=== PATIENT | female | born 1960 | race Caucasian/White ===

== ENCOUNTER 2024-10-23 08:14 | Observation (INO) ==
--- NOTE | 2024-09-20 12:54 | PAT Medication Instructions ---
Medication Instructions Date of Service September 20, 2024 Home Medications Medication Instructions Recorded acetaminophen 500 mg tablet 1,000 mg (2 x 500 mg) PO TID pain 07/13/23 (Tylenol Extra Strength) 30 days #180 tabs amoxicillin 500 mg tablet 2,000 mg (4 x 500 mg) PO ONCE #4 08/09/24 tabs cyanocobalamin (vitamin B-12) 1,000 mcg tablet 1,000 mcg PO QAM lbjkljjlupgn-tovjlidu-hprofhi-folic acid 400 mcg-vit K1 20 mcg tablet (Women's 50 Plus Advanced) 1 tab PO QAM acetaminophen 500 mg tablet (Tylenol Extra Strength) 1,000 mg (2 x 500 mg) PO TID pain amoxicillin 500 mg tablet 2,000 mg (4 x 500 mg) PO ONCE naproxen 500 mg tablet 500 mg PO BID PRN Pain vit C 250 mg-vit E 90 mg-zinc 40 mg-copper 1 ws-rtqnxn-xtisbr capsule (PreserVision AREDS-2) 1 tab PO QAM Continue as directed amoxicillin 500 mg tablet 2,000 mg (4 x 500 mg) PO ONCE ASK your surgeon for instructions naproxen 500 mg tablet 500 mg PO BID PRN Pain STOP taking 2 weeks before surgery (or as soon as possible if surgery is within 2 weeks) vit C 250 mg-vit E 90 mg-zinc 40 mg-copper 1 or-wyjtqg-wotfim capsule (PreserVision AREDS-2) 1 tab PO QAM DO NOT take the morning of surgery cyanocobalamin (vitamin B-12) 1,000 mcg tablet 1,000 mcg PO QAM Women's 50 Plus Advanced 1 tab PO QAM Take morning of surgery With a small sip of water, OTHERWISE NOTHING TO EAT OR DRINK AFTER MIDNIGHT: acetaminophen 500 mg tablet (Tylenol Extra Strength) 1,000 mg (2 x 500 mg) PO TID pain (if needed) Take evening before surgery acetaminophen 500 mg tablet (Tylenol Extra Strength) 1,000 mg (2 x 500 mg) PO TID pain (if needed) Other Notes If you have any questions please call us at [phone] or [phone] or [phone] or [phone]
--- NOTE | 2024-10-01 09:45 | Anesthesiology Consultation ---
Date of Service October 01, 2024 Assessment & Plan (1) Encounter for pre-operative examination: Plan - s/p right TKA 07/15/23 SAB L3-L4 + PNB. - Outpatient joint assessment: Patient is currently scheduled for inpatient pathway. If re-evaluated and patient/surgeon requests outpatient pathway, patient is acceptable candidate for outpatient joint program from anesthesia standpoint pending surgeon's office assessment of pt motivation/support/completion of same day joint program preop requirements. Chart Review Chart Review: Acceptable Risk for Surgery and Patient seen in Pre Admission Testing Teaching & Discussion Pre-Anesthesia Teaching/Discussion Notes: Instructed NPO after midnight before surgery, except medications with 15 cc of water. Medication instructions provided according to the PAT guidelines. History Surgery Operation Date: 10/23/24 07:00 Proposed Procedures p Left Total Knee Arthroplasty - Enrique Wells MD Height/Weight Height: 5 ft 4 in Weight: 70.4 kg Allergies Allergy/AdvReac Type Severity Reaction Status Date / Time No Known Allergies Allergy Verified 11/07/23 10:42 Medications Home Medications Medication Instructions Recorded Confirmed Last Taken cyanocobalamin (vitamin B-12) 1,000 mcg PO QAM 06/09/23 09/18/24 07/08/23 1,000 mcg tablet pdwsygctboda-xscaroag-qyxgbss-folic 1 tab PO QAM 06/09/23 09/18/24 07/08/23 acid 400 mcg-vit K1 20 mcg tablet (Women's 50 Plus Advanced) acetaminophen 500 mg tablet 1,000 mg (2 x 500 mg) PO TID pain 07/13/23 09/18/24 Unknown (Tylenol Extra Strength) 30 days #180 tabs amoxicillin 500 mg tablet 2,000 mg (4 x 500 mg) PO ONCE #4 08/09/24 09/18/24 Unknown tabs naproxen 500 mg tablet 500 mg PO BID PRN Pain 09/18/24 09/18/24 Unknown vit C 250 mg-vit E 90 mg-zinc 40 1 tab PO QAM 09/18/24 09/18/24 Unknown mg-copper 1 cb-lxgxup-bevpan capsule (PreserVision AREDS-2) Past Medical History Medical History (Updated 10/01/24 @ 09:47 by Zhane Mak PA-C) Arthritis DJD (degenerative joint disease) of knee History of COVID-19 Possible 08/2019, "was very ill" denies residual effects Lyme disease Possible 2011, "not confirmed" denies residual effects Patient denies h/o stroke, seizures, heart attack, heart failure, DM, HTN, blood clots/DVTs or blood transfusions. Exercise / Class Metabolic Activity II 4-5 Yardwork/Stairs/Walk up hill (denies chest discomfort or shortness of breath with one flight of stairs) Past Surgical History Surgical History History of arthroplasty of right knee 06/2023 [facility] History of carpal tunnel release right History of section x1 History of colonoscopy Past Anesthesia History No Hx of Anesthesia Complications and No Family Hx of Anesthesia Complications History of PONV No Hx of PONV and No Hx of Motion Sickness Social History Smoking Status: Never smoker Do You Dip or Chew Tobacco: No Hx Alcohol Use: Yes Alcohol type: beer alcohol intake frequency: holidays/special occasions only Hx Substance Use: No substance use type: does not use Review of Systems Patient denies chest pain, shortness of breath, dyspnea on exertion, snoring, witnessed apneas, reflux, fever, chills, cough, wheezing, or palpitations. Physical Exam Vital Signs Vitals BP 118/71 P 61 TEMP 97.8 SP02 97% on RA RESP 19 Physical Patient resting comfortably in chair in no acute distress, alert and oriented, responding appropriately throughout visit Full cervical extension range of motion without pain TMD 3 finger breadths Mallampati Score 2 Dentition: several cap/crowns left side, denies chipped or loose teeth, implants or bridges Lungs: normal respiratory effort. Good air movement, clear throughout to auscultation, no adventitious breath sounds Cardiac: regular rate and rhythm, no murmurs noted Carotid arteries: negative bruit bilat Lab Results Anesthesia Preop Results Results Anesthesia Widget: WBC 6.10 K/ul (4.8-10.8) 10/01/24 Hgb 13.7 g/dl (12.0-16.0) 10/01/24 Hct 42.4 % (37.0-47.0) 10/01/24 Plt 271 K/uL (130-400) 10/01/24 Na 139 mmol/L (136-145) 10/01/24 K 4.9 mmol/L (3.5-5.1) 10/01/24 Cl 104 mmol/L (98-107) 10/01/24 CO2 31 mmol/L (21-32) 10/01/24 BUN 19 mg/dl (6-23) 10/01/24 Creat 0.80 mg/dl (0.6-1.2) 10/01/24 Glucose Level 95 mg/dl (70-99(Fasting)) 10/01/24 PT 11.0 Seconds (9.0-12.0) 10/01/24 PTT 28 Seconds (21-31) 10/01/24 INR 1.0 (0.9-1.1) 10/01/24 Blood Type O Positive 10/01/24 Antibody Screen NEGATIVE 10/01/24 Testing Electrocardiogram Date: 10/01/24 Sinus bradycardia, rate 54 bpm Chest X-Ray Date: 10/01/24 No acute findings. Stress Test Date: 10/31/19 METS 5 MPHR 97% Negative for inducible ischemia Low workload achieved reduces the sensitivity of this test for the detection of coronary artery dsiease or ischemia Suboptimal study EF 55-59% Normal LV wall motion
--- NOTE | 2024-10-18 13:41 | History & Physical Report ---
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 She has failed conservative treatment. She is happy with the right knee would like to have her left knee fixed. Plan: We are going to take her to the operating room do a left knee replacement. The risks Mente this procedure were explained and she understands. Informed consent was obtained. Will plan on using aspirin for DVT prophylaxis. She is planned to be discharged to home with some home health. (2) History of arthroplasty of right knee: History of Present Illness Chief Complaint: . Persistent left knee pain and discomfort. Primary Care Provider: Christal Mc . 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 She got a long history of bilateral knee pain discomfort described to gotten worse over time. She had a right knee replaced a little over a year ago and is done well with this. She continues to limp by left knee pain discomfort. Is global pain. The more she is on it the more it hurts. She limps more as the day goes on. She like to have her left knee fixed. She is very happy with the right knee. Allergies Allergy/AdvReac Type Severity Reaction Status Date / Time No Known Allergies Allergy Verified 11/07/23 10:42 Home Medications Medication Instructions Recorded Confirmed Type cyanocobalamin (vitamin B-12) 1,000 mcg PO QAM 06/09/23 09/18/24 History 1,000 mcg tablet cxidoaplqhcm-okfwuceu-unofvep-folic 1 tab PO QAM 06/09/23 09/18/24 History acid 400 mcg-vit K1 20 mcg tablet (Women's 50 Plus Advanced) acetaminophen 500 mg tablet 1,000 mg (2 x 500 mg) PO TID pain 07/13/23 09/18/24 Rx (Tylenol Extra Strength) 30 days #180 tabs amoxicillin 500 mg tablet 2,000 mg (4 x 500 mg) PO ONCE #4 08/09/24 09/18/24 Rx tabs naproxen 500 mg tablet 500 mg PO BID PRN Pain 09/18/24 09/18/24 History vit C 250 mg-vit E 90 mg-zinc 40 1 tab PO QAM 09/18/24 09/18/24 History mg-copper 1 pb-xectyb-nmnoht capsule (PreserVision AREDS-2) Past Med/Surg History Problem List Left knee DJD Medical History DJD (degenerative joint disease) of knee Arthritis Lyme disease Possible 2011, "not confirmed" denies residual effects History of COVID-19 Possible 08/2019, "was very ill" denies residual effects Surgical History History of arthroplasty of right knee 06/2023 [facility] History of colonoscopy History of carpal tunnel release right History of section x1 Social History Smoking Status: Never smoker Second Hand Exposure: No; Do You Dip or Chew Tobacco: No; Hx Alcohol Use: Yes Alcohol type: beer Hx Substance Use: No Preferred Language: Indian Communication Ability: Effective Fiberglass Quality Technician Required: No Beliefs That Will Affect Care: None Current Living Situation: Spouse Feels Safe at Home: Yes Assistive Devices: Glasses Review of Systems All systems reviewed & are unremarkable except as noted in HPI & below. Physical Exam . Physical examination was a pleasant middle-age female but looks in pretty good health. Examination of the left knee reveals varus alignment to her knee. She is tender over the medial joint line. A little bit of bony hypertrophy medially. Range of motion about 5-1 15. No instability. No pain with hip motion. Examination the right knee was a well-healed incision. She has anatomic alig nment to the knee. Range of motion 0-1 20. No instability. Constitutional WD/WN, vitals as above Neck trachea midline, no thyromegaly Respiratory normal respiratory effort, lungs clear to auscultation Cardiovascular RRR, no murmur, no edema Gastrointestinal (Abdomen) normal bowel sounds, soft, nontender, no hepatosplenomegaly Results & Data Results & Data Laboratory Results . Diagnostic Findings . X-rays of the left knee reviewed. Shows advanced left knee DJD. She got complete loss of medial joint space. She got osteophytes primarily medially. The right knee replacement looks made good position without problems. PG Care Time/CCT Total # of Minutes Spent Total Time Spent with Patient: Total time spent is greater than 50% in coordination of care (as documented) at patient's floor/unit and/or counseling patient: Coding Level of Care Code None Diagnoses Left knee DJD M17.12 History of arthroplasty of right knee Z96.651
[~2024-10-23 08:14] MED LIST: BUPIVACAINE 0.5 % 5 MG/1 ML PF 10ML VIAL ONE; ROPIVACAINE 0.5% 5 MG/ML 30 ML VIAL ONE
--- NOTE | 2024-10-23 08:47 | History & Physical Bridge Note ---
Date of Service October 23, 2024 History & Physical Bridge Note I have examined the patient, reviewed the History & Physical and in the interval since the performance of the History & Physical I have noted the following changes of clinical significance: no changes noted
[2024-10-23] MEDS: LR 60ML/HR IV SCH (08:54)
[2024-10-23] MEDS: LR 500ML BOLUS, THEN 15ML/HR IV SCH (08:54)
[2024-10-23] MEDS: METOCLOPRAMIDE HCL 10 MG TABLET PO SCH (08:56)
[2024-10-23] MEDS: CeleBREX 200 MG CAP PO SCH (08:56)
[2024-10-23] MEDS: FAMOTIDINE 20 MG TAB PO SCH (08:56)
[2024-10-23] MEDS: dexAMETHasone**PF** 10 MG/ML VIAL IV SCH (08:56)
[2024-10-23] MEDS: ACETAMINOPHEN 500 MG TAB PO SCH ×2 (08:56→15:43)
[2024-10-23] MEDS ORDERED: ONDANSETRON INJ 2 MG/ML 2 ML VIAL ONE (09:23)
[2024-10-23] MEDS ORDERED: PROPOFOL IV EMULSION 10 MG/ML 100 ML VIAL IV ONE (09:23)
[2024-10-23] MEDS ORDERED: fentaNYL citrate PF 100 MCG/2 ML VIAL ONE (09:23)
[2024-10-23] MEDS ORDERED: MIDAZOLAM HCL 1 MG/ML 2ML VIAL ONE (09:23)
--- OUTSIDE RECORDS SUMMARY | 2024-10-23 09:44 | External Medical Summary | Summary of Care ---
Author Name Unknown Organization [facility] Address [address] [place] [address] Phone [phone] Care Team Providers Care Regional Director Of Finance Name Role Phone Christal Mc PA-C Primary Care Provider Encounter Details Date Type Department Care Team (Latest Contact Info) Description 10/05/2024 9:07 AM EST - 10/05/2024 11:59 PM EST Hospital Encounter Radiology, [facility] [address] [place] [address] Arrived Discharge Disposition: Home - Self Care Allergies No known active allergiesdocumented as of this encounter (statuses as of 10/06/2024) Medications CYANOCOBALAMIN (VITAMIN B-12) 500 MCG Sublingual Tablet Take 1 Tablet by mouth in the morning. Active Multiple Vitamin (MULTI VITAMIN DAILY) TABS 1 Tab daily. Active Celecoxib 200 MG Oral Capsule (CeleBREX) Take 1 Capsule by mouth in the morning. 2 Active Premarin 0.625 MG/GM Vaginal Cream (Estrogens, Conjugated)Arline cations:Vaginal atrophy Administer into the vagina 0.5 g in the morning. with applicator, every night for 1 week, then three times a week on Mondays, Wednesdays and Fridays for two weeks. Then Once to twice a week after.. 60 g 2 2 Active Additional Information Patient not taking.Reported on 10/12/2022 documented as of this encounter (statuses as of 10/06/2024) Active Problems Problem Noted Date Diagnosed Date Left ovarian cyst 07/27/2022 Right ovarian cyst 07/27/2022 Uterine leiomyoma 07/27/2022 Female dyspareunia 07/27/2022 Bilateral hand pain 10/04/2014 documented as of this encounter (statuses as of 10/06/2024) Social History Tobacco Use Types Packs/Day Years Used Date Smoking Tobacco: Never Smokeless Tobacco: Never Alcohol Use Standard Drinks/Week Comments No 0 (1 standard drink = 0.6 oz pur e alcohol) Comments No Sex and Gender Information Value Date Recorded Sex Assigned at Not on file Legal Sex Female 7:04 AM EST Gender Identity Not on file Sexual Orientation Not on file documented as of this encounter Plan of Treatment Scheduled Procedures Name Priority Associated Diagnoses Date/Ti me COLONOSCOPY FLEXIBLE PROXIMA L DIAGNOSTIC Recall History of colonic polyps Health Maintenance Due Date Last Done Comments Depression Screening 1973 HIV Screening 1976 Hepatitis C Screening 1979 HPV/Co-Test 1991 DTap/Tdap Vaccines (1 - Tdap) 12/30/2005 12/29/2005 Cologuard 2006 Fecal Occult Blood Test 2006 Sigmoidoscopy 2006 Pneumococcal Vaccine: 50+ Years (1 of 1 - PCV) 2011 Zoster Vaccines (1 of 2) 2011 COVID-19 Vaccine (3 - season) 2024 03/26/2021, 02/17/2021 Influenza Vaccine (FLU shot) (#1) 2024 Cervical Cancer Screening 07/27/2025 Pap Smear 07/27/2025 07/27/2022 Mammogram 10/05/2025 10/05/2024, 08/27, 09/06/2023, Additional history exists Colonoscopy 06/11/2026 06/11/2021, 06/11/2021 Colorectal Cancer Screening 06/11/2026 Diabetes Screening 06/26/2027 06/26/2024, 0 12/21/2023, 06/15/2023, Additional history exists Lipid Panel 06/26/2029 06/26/2024, 11/25, 06/15/2023, Additional history exists RETIRED - COLONOSCOPY-EVERY 5 YRS AGES 18-100 Discontinued 06/11/2021, 06/11/2021 HPV (Gardasil) Vaccine Aged Out No lo nger eligible based on patient's age to complete this topic Hepatitis B Vaccine Aged Out No longe r eligible based on patient's age to complete this topic MENINGOCOCCAL (MENACTRA/MENVEO) Aged Out No longer eligible based on patient's age to complete this topic documented as of this encounter Medical Devices Implanted Type Area Composing Machine Operator Device Identifier Shelf Expiration Date Model / Serial / Lot Clip-10/12/2023 Implanted:Qty: 1 on 10/12/2023 by Ajit Rodrigez DO Clip Left: Breast [employer] 06/22/2026 / / [id number] documented as of this encounter Procedures Procedure Name Priority Date/Time Associated Diagnosis Comments MAMMOGRAM SCREENING RESHMA BILATERAL Routine 10/05/2024 9:19 AM EST Encounter for screening mammogram for malignant neoplasm of breast documented in this encounter Results * MAMMOGRAM SCREENING RESHMA BILATERAL (10/05/2024 9:19 AM EST) Anatomical Region Laterality Modality Breast Bilateral Mammography Narrative 10/05/2024 1:20 PM EST Result MAMMOGRAM SCREENING RESHMA BILATERAL History Encounter for screening mammogram for malignant neoplasm of breast Family medical history includes breast cancer in grandmother (maternal). Films Compared Comparison is made to previous studies dated as far back as 2019 Findings The breasts are heterogeneously dense, which may obscure small masses. There is no evidence of suspicious masses, calcifications, or other abnormal findings. Impression Bilateral No mammographic evidence of malignancy. BI-RADS Category: 1 - Negative. Recommendation Screening mammogram in 1 year is recommended for both breasts. Digital breast tomosynthesis was performed. This digital mammogram has been analyzed with the computer aided detection system. Breast tissue can be either dense or not dense. Dense tissue makes it harder to find breast cancer on a mammogram and also raises the risk of developing breast cancer. Your breast tissue is dense. In some people with dense tissue, other imaging tests in addition to a mammogram may help find cancers. Talk to your healthcare provider about breast density, risks for breast cancer, and your individual situation. This examination was performed at [facility], [address] [place] [id number]. [phone] Christal Mc PA-C RAD MAMMOGRAPHY Final R esult documented in this encounter Visit Diagnoses Diagnosis Encounter for screening mammogram for malignant neoplasm of breast Other screening mammogram documented in this encounter Care Teams Regional Director Of Finance Relationship Specialty Start Date End Date [facility]al Mc PA-C [address] [facility] [address] PCP - General Physician Business Executive 10/15/15 documented as of this encounter
[2024-10-23] MEDS ORDERED: ePHEDrine sulfate 50 MG/ML AMP IV PRN (10:18)
[2024-10-23] MEDS ORDERED: ONDANSETRON INJ 2 MG/ML 2 ML VIAL IV PRN ×2 (10:18→14:14)
[2024-10-23] MEDS ORDERED: ATROPINE SULFATE 0.1 MG/ML 10ML SYR IV PRN (10:18)
[2024-10-23] MEDS ORDERED: fentaNYL citrate PF 100 MCG/2 ML VIAL IV PRN (10:18)
[2024-10-23] MEDS: ceFAZolin 2000MG 2,000 MG/15 ML SYR IV SCH (10:54)
[2024-10-23] MEDS ORDERED: ePHEDrine sulfate 50 MG/5 ML SYR ONE (11:19)
[2024-10-23] MEDS: ORTHO JOINT ANESTHETIC ONE (11:25)
[2024-10-23] MEDS: ROPIV 0.5% 246mg, Ketorolac 30mg, EPINEPHrine 0.5mg in NSS INFIL SCH (11:25)
[2024-10-23] MEDS: TRANEXAMIC ACID 1,000 MG **IV Intra-op IV SCH (11:54)
--- NOTE | 2024-10-23 12:37 | Operative Report ---
PG Post Operative Report Pre & Post Diagnosis Operation Date: 10/23/24 10:40 Pre-Op Diagnosis: Left Knee Degenerative Joint Disease Post-Op Diagnosis: Left Knee Degenerative Joint Disease I identified the patient and participated in the time-out.: Yes Procedure Operation Date: 10/23/24 10:40 Actual Procedures p Left Total Knee Arthroplasty(Left) - Enrique Wells MD Surgeon Enrique Wells MD Health Services Administrator Jhon Randolph PA-C Estimated Blood Loss 50 Findings Consistent with Post-Op Diagnosis Specimens Left knee sent for pathology. 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 She failed conservative measures. She had a right knee replaced a year ago and is done well from this. She continued be limited by left knee pain discomfort stiffness. She like to proceed with total knee arthroplasty on the left knee. Description of Procedure Operative implants consist of: 1 Biomet Vanguard size 62.5 left posterior Byce femoral component. 2. Biomet size 67 tibial tray. 3. 12 mm posterior stabilized polyethylene insert. 4. 31 x 8 all poly patella. The patient was taken the op room, identified, placed on the operating table in the supine position. All contact areas were appropriately padded. IV antibiotics fibra anesthesia team. A spinal anesthetic and adductor canal block had been provided in the holding area. A Zuniga catheter was placed in sterile fashion. A left factor was then placed in the left lower extremities then prepped and draped in usual sterile fashion. The left leg was elevated and exsanguinated with use of an Esmarch and a turn was placed at 300 mmHg. An anterior approach to the left knee was then performed to a longitudinal incision centered over the patella. Sharp dissection scalp through subcutaneous tissue down the extensor mechanism. A med ial parapatellar arthrotomy incision was made. Some subperiosteal dissection was carried out medially. The fat pad was dissected from Neath patella tendon. The lateral patellofemoral ligament was released. The patella was subluxated laterally and the knee was flexed. The osteophytes taken on distal femur. The ACL and PCL were then released from distal femur the tibia subluxate anteriorly. The external tibial alignment jig was then placed on the anterior face the tibia and adjusted 14 mm medially. The proximal tibial cut was made remove about 2 mm of bone from the medial side. Tibia sized to a size 67. Attention drawn the femur. The distal femur was entered with a sharp drop with intramedullary canal was suction. A left 5 degree valgus cutting guide was placed. The distal femoral cutting block was pinned in place. This femoral cut was made to take an additional 3 mm of bone off distal femur. The femur was then sized to a size 62.5. The AP cutting block was pinned parallel to the epicondylar axis which was 4 degrees of external rotation. The anterior cut, anterior chamfer, posterior cut, posterior chamfer cuts were made. The box cutting guide was placed and just slight lateral and the box cut was made. The knee was flexed. The remnants of the medial and lateral menisci were excised. The osteophytes taken off the posterior aspect the femur. A trial femoral component was placed. The tibial tray was pinned Sheila external rotation and the drill and stem punch were used to create defect in proximal tibia for the tibial tray. The knee was then trialed and the 12 mm insert fit most appropriately. Attention drawn the patella. Patella was cleaned of all soft tissue. Patella thickness measured 18 mm in thickness was cut down to 13. Was sized to a size 31 patella. The lug holes were drilled for 31 patella. The lateral osteophytes removed. The patella button was placed. The knee was taken through range of motion patella tracked nicely with no thumbs test. Attention was then drawn toward placement permanent components. Nupathe all trial components were removed. Bone plug was placed into this femur limit blood loss. A double batch Palacos G cement was mixed. A Biomet Vanguard size 62.5 left posterior stabilized femoral component, a size 67 tibial tray, a 12 mm posterior stabilized polyethylene insert, and a 31 x 8 all poly patella then cemented in place. The knee was brought down to full extension till cement hardened. Final cement check was then performed. The pericapsular tissues were injected with total 100 cc of Ortho mix. The patient did receive 1 g tranexamic acid. The tourniquet was then let down for final turn time 54 minutes. Hemostasis assured with electrocautery. Extensor Meclomen then closed with combination 1 PDS suture and 1 Vicryl suture in a pjjbjg-kh-glaih fashion. Extensor Meclomen checked found to be intact with subcutaneous tissues then closed with 2 Dexon suture in a buried interrupted fashion and the skin was closed skin cleo. Leg was then cleaned and dried and a sterile dressing with Xeroform, 4 fours, sterile cast padding, Sidney bandage were applied. The patient was then transferred to the recovery in stable condition. Patient tolerated procedure well and there were no complications. Jhon Randolph, my physician boilermaker's assistant, was present for the entire procedure. His assistance was essential and required for appropriate patient positioning, prepping and draping, surgical exposure, performing the technical details of the operation, placement the implants, closure of the wound, and placement of the sterile bandage. I attest to the content of the Intraoperative Record and any orders documented therein. Any exceptions are noted below.
--- NOTE | 2024-10-23 12:57 | XRay Report ---
XR knee LT 1 or 2V routine CLINICAL HISTORY: Surgical Post Op COMPARISON: None FINDINGS: Left knee prosthesis shows no hardware complication. There is expected soft tissue gas. Sk in cleo are present anteriorly. IMPRESSION: Unremarkable postoperative exam. ACT 112: Negative or not required by law. Electronically signed by: Zafar Cross M.D. 10/23/2024 12:55 PM
[2024-10-23] MEDS ORDERED: HYDROmorphone INJ 0.5 MG/0.5 ML SYR IV PRN (14:14)
[2024-10-23] MEDS ORDERED: diphenhydrAMINE Capsule 25 MG CAP PO PRN (14:14)
[2024-10-23] MEDS ORDERED: ACETAMINOPHEN 500 MG TAB PO SCH (14:14)
[2024-10-23] MEDS ORDERED: NALOXONE HCL 0.4 MG/1 ML VIAL/CARP IV PRN (14:14)
[2024-10-23] MEDS ORDERED: ALUMINUM/MAGNESIUM SUSP 30 ML UDC PO PRN (14:14)
[2024-10-23] MEDS ORDERED: oxyCODONE HCL IR 5 MG TAB (IMMEDIATE RELEASE) PO PRN (14:14)
[2024-10-23] MEDS ORDERED: METOCLOPRAMIDE HCL INJ 5 MG/ML 2 ML VIAL IV PRN (14:14)
[2024-10-23] MEDS ORDERED: MAGNESIUM HYDROXIDE SUSP 30 ML UDC PO PRN (14:14)
[2024-10-23] MEDS ORDERED: bisacodyL 10 MG SUPP PR PRN (14:14)
--- NOTE | 2024-10-23 15:29 | Anesthesiology Progress Note ---
Date of Service October 23, 2024 Anesthesia Post Procedure Vital Signs Vital Signs: Temp Pulse Pulse Resp BP BP Pulse Ox 10/23/24 15:14 97.9 F 65 16 96/54 L 96 10/23/24 14:42 65 18 108/67 97 10/23/24 14:00 70 17 110/56 L 95 10/23/24 13:45 71 18 102/55 L 93 10/23/24 13:35 97.7 F 66 17 102/50 L 97 10/23/24 13:25 63 15 103/52 L 98 10/23/24 13:15 60 14 99/54 L 97 10/23/24 13:05 61 15 117/53 L 97 10/23/24 12:55 62 16 110/55 L 97 10/23/24 12:45 66 13 110/53 L 96 10/23/24 12:36 97.3 F L 72 13 107/53 L 93 10/23/24 08:37 97.7 F 70 18 141/77 H 97 O2 Del Method O2 Flow Rate 10/23/24 15:14 Room Air 10/23/24 14:42 Room Air 10/23/24 14:00 Room Air 0 10/23/24 13:45 Room Air 0 10/23/24 13:35 Room Air 0 10/23/24 13:25 Nasal Cannula 2 10/23/24 13:15 Nasal Cannula 2 10/23/24 13:05 Nasal Cannula 2 10/23/24 12:55 Nasal Cannula 2 10/23/24 12:45 Nasal Cannula 2 10/23/24 12:36 Room Air 10/23/24 08:37 Room Air Pain Intensity Left Knee: Pain Intensity: 0 Transfer of Care Handoff Completed per policy Notes Mental Status: alert / awake / arousable and participated in evaluation Patient Amnestic to Procedure: Yes Nausea / Vomiting: adequately controlled Pain: adequately controlled Airway Patency, RR, SpO2: stable & adequate BP & HR: stable & adequate Hydration State: stable & adequate Neuraxial Anesthesia: was administered and sensory block is resolving Anesthetic Complications: no major complications apparent and Pt Satisfied with anesthetic care
[2024-10-23] MEDS: KETOROLAC 30 MG/ML VIAL IV SCH (15:43)
[2024-10-23] MEDS: ASCORBIC ACID 500 MG TAB PO SCH (17:42)
[2024-10-23] MEDS: ceFAZolin 1000MG 1,000 MG/7.5 ML SYR IV SCH (17:43)
[2024-10-23] MEDS: TRANEXAMIC ACID / 0.7% NACL 1,000 MG/100 ML BAG IV SCH (17:43)
[2024-10-23] MEDS: ASPIRIN 81 MG ECTAB PO SCH (20:15)
[2024-10-23] MEDS: SENNA 8.6 MG TAB PO SCH ×2 (20:16→21:30)
[2024-10-23] MEDS: DOCUSATE SODIUM 100 MG CAP PO SCH (20:16)
[2024-10-24 06:31] LABS: Hematocrit (blood only) 35.3 % (37.0-47.0); Hemoglobin 11.6 g/dl (12.0-16.0); Mean Corpuscular Hemoglobin 28.1 pg (25.0-34.0); Mean Corpuscular Hgb Conc 32.9 g/dL (32.0-36.0); Mean Corpuscular Volume 85.5 fL (80.0-100.0); Mean Platelet Volume 9.9 fL (9.4-12.4); Platelet Count 236 K/uL (130-400); RDW Coefficient of Variation 13.1 % (11.5-14.5); RDW Standard Deviation 40.7 fL (36.4-46.3); Red Blood Count 4.13 M/uL (4.20-5.40); White Blood Count 15.43 K/ul (4.8-10.8)
[2024-10-24 06:34] LABS: BUN Creatinine Ratio 20.2 (10-20); Calcium 9.2 mg/dl (8.6-10.3); Creatinine Clr Calc Pharmacy 62.8 ml/min; Potassium 4.2 mmol/L (3.5-5.1)
--- NOTE | 2024-10-24 07:05 | Orthopedic Progress Note ---
Date of Service October 24, 2024 Assessment & Plan (1) Status post total left knee replacement: Pain controlled. PT/OT wbat, total knee protocol dvt prophylaxis: teds, scd's, aspirin d/c planning: home with home health likely today after therapy will discuss with Dr Wells. Follow up in 2-3 weeks post op Subjective .63 year old patient POD 1 from left tka. Doing fairly well. Has been out of bed and ambulated. Having some pain but controlled with medicine. No other complaints. Review of Systems All systems reviewed & are unremarkable except as noted in HPI & below. Physical Exam .alert and oriented. NAD. VSS Left knee: dressing clean, dry, intact. Able to dorsiflex and plantarflex. NVI. Unable to do straight leg raise today. Results & Data Results & Data Laboratory Results . Diagnostic Findings . PG Care Time/CCT Total # of Minutes Spent Total Time Spent with Patient: Total time spent is greater than 50% in coordination of care (as documented) at patient's floor/unit and/or counseling patient: Coding Level of Care Code 03028 Post Operative Follow-Up Diagnoses Status post total left knee replacement Z96.652
[2024-10-24 07:11] VITALS: BP 114/72; PULSE 54; RESP 16; TEMP 97.7; O2SAT 97
[2024-10-24] MEDS: CYANOCOBALAMIN (B-12) 500 MCG TABLET PO SCH (07:36)
[2024-10-24] MEDS: MULTIVITAMIN TAB PO SCH (07:36)
[2024-10-24] MEDS: dexAMETHasone 10 MG in SYRINGE 0 ML IV SCH (07:36)
[2024-10-24] MEDS: CEROVITE ADV FORMULA TAB PO SCH (07:37)
[2024-10-24] MEDS ORDERED: [UNRECOGNIZED DRUG - MIXTURE] PO SCH (09:00)
--- NOTE | 2024-10-25 15:40 | Discharge Summary ---
Date of Service October 25, 2024 Admission HPI (Per Admitting) . 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 She got a long history of bilateral knee pain discomfort described to gotten worse over time. She had a right knee replaced a little over a year ago and is done well with this. She continues to limp by left knee pain discomfort. Is global pain. The more she is on it the more it hurts. She limps more as the day goes on. She like to have her left knee fixed. She is very happy with the right knee. Admission Exam (Per Admitting) . Physical examination was a pleasant middle-age female but looks in pretty good health. Examination of the left knee reveals varus alignment to her knee. She is tender over the medial joint line. A little bit of bony hypertrophy medially. Range of motion about 5-1 15. No instability. No pain with hip motion. Examination the right knee was a well-healed incision. She has anatomic alignment to the knee. Range of motion 0-1 20. No instability. Principal Diagnosis Same as "Discharge Diagnosis" noted below under Discharge Instructions. Discharge Exam .alert and oriented. NAD. VSS Left knee: dressing clean, dry, intact. Able to dorsiflex and plantarflex. NVI. Unable to do straight leg raise today. Discharge Data Procedures Performed Operation Date: 10/23/24 10:40 Actual Procedures p Left Total Knee Arthroplasty(Left) - Enrique Wells MD Ordered Studies 10/23/24 05:00 US - OR guided needle placemen Routine Hospital Course (1) Status post total left knee replacement: This is a 63 year old patient admitted on 10/23/24 and underwent total knee arthroplasty. She tolerated the procedure well and there were no complications. Transferred to the PACU post op and later to the orthopedic floor for further care. She was given ancef for antibiotic prophylaxis. She was also given SADI stockings, SCDs, and aspirin for DVT prophylaxis. Hemoglobin, hematocrit, and vital signs were monitored during her hospital stay and remained stable. Did not require any blood transfusions. There were no complications during her hospital stay. By post op day #1 the patient was tolerating a regular diet, pain was reasonably controlled with oral pain medicine, and she was participating in physical therapy. On post op day #1 the patient was discharged home and set up with home health care. He was given printed discharge instructions including prescriptions for extra strength tylenol, aspirin, cefadroxil, ketorolac, zofran, senokot, and oxycodone. Continue physical therapy, weight bearing as tolerated. Continue SADI stockings. Follow up approximately 2 weeks post op or sooner if there are problems or concerns. PG Care Time/CCT Total # of Minutes Spent Total Time Spent with Patient: : Discharge Plan Discharge Items Patient Disposition: Home - Home Health Services Reason For Visit: Left Knee Osteoarthritis Discharge Diagnosis: s/p left total knee replacement Activity: Per Instructions section Non-emergency contact: Surgeon Call non-emergency contact if: you have any medication questions, your pain is not controlled, you have a fever, your wound has increased redness and your wound has increased drainage Follow-up/Referrals: Christal Mc PA-C [Primary Care Provider] - Diet: Regular Addtl Attending Provider Instructions: ACTIVITY RECOMMENDATIONS: Diet: * You may resume previous diet. Physical Therapy: * You will go to physical therapy three times each week for four to six weeks after your surgery in order to regain your knee range of motion and to retrain your knee to work properly. * It is just as important to make sure you are getting your knee perfectly straight as it is to regain your knee bend. * Taking a pain pill an hour before therapy can help you have a more productive and comfortable therapy session. Home Exercise: * You were shown a series of exercises (heel props, heel slides, etc.) in the hospital. Do these exercises three to four times each day including the exercises you were shown in physical therapy. Walking: * Get up and walk several times each day. For the first four weeks, try not to stand or walk for more than one hour at a time. If you do stand or walk for more t howe one hour, you will not hurt anything, but your knee and leg will likely swell. * As you feel comfortable, you may change from the walker or crutches to a cane and then to independent walking. MEDICATIONS: New Medicine: * You will likely be taking one or more of these medications: 1. Oxycodone - A quick and shorter-acting pain medication. Take one to two tablets every six hours to lessen your pain. 2. Aspirin - Thins your blood to lessen the chance of forming a blood clot. * The most common side effects of pain medicine and iron are nausea and constipation. If nausea or constipation is too much of a problem or if you have any questions about your new medicines or doses, call [facility] at . We will try to help you manage these issues. "VERY IMPORTANT TO READ AND REVIEW" Pain: * The immediate post-operative period after knee replacement surgery is often quite painful. * You are given a prescription for pain medicine. You should take it, as directed, when you need it, especially before physical therapy and before going to bed. Pain that interferes with sleep is very common and can last several months. * You will likely need pain medicine for the first four to six weeks. It will not stop all of the pain. The pain will lessen and as you feel better, you may change to milder pain medicine such as Tylenol. * The most common side effects of pain medicine are nausea and constipation, so don't take more than you need. SPECIAL CARE INSTRUCTIONS: TEDs/Elastic Stockings: * The white elastic stockings help limit swelling and prevent blood clots from forming in your legs. The more you wear them, the more they work. * Wear them for six weeks after knee replacement surgery and four weeks after partial knee replacement. Incision Site Care: * Remove dressing postoperative day 2 and then shower. Keep direct shower pressure off the incision site. * After showering, cover cleo with dry gauze and change daily or more frequently if the dressing is getting saturated with drainage. * Use the SADI stockings to hold dressing in place. DO NOT apply tape on the skin. * May completely stop using bandage if wound is dry and no drainage * Cleo are removed between 2 and 3 weeks post-op. If your follow-up appointment is made before 2 weeks, please have your appointment re- scheduled. It is too early to remove the cleo. Prevention of Infection: * Take antibiotics one hour before any dental cleaning, dental work, urological procedure, gastrointestinal procedure or any invasive surgery in order to prevent your new joint from getting infected. * You may get the antibiotics from the doctor performing the procedure or you may call our office at [phone] before and we will call in a prescription to the pharmacy of your choice. Things to Watch For: * Drainage from the incision site that occurs more than one week after your surgery. * Severely increased knee/leg pain or swelling. * Increased redness at the incision site. * Fever above 102 degrees Fahrenheit. * Unusual chest pain or shortness of breath. * Unusual pain or burning with urination. Call [facility] at [phone] with any of the above problems or if you have any questions about your medicines or recovery. FOLLOW UP VISIT: Make an appointment to see your doctor for approximately two weeks after surgery for a progress check and staple removal by calling the office at [phone]. Pending Studies at Discharge: No Stand-Alone Forms: My [facility], Smoking Cessation Medications and DC Order Prescriptions: Continued acetaminophen [Tylenol Extra Strength] 500 mg tablet 1,000 mg PO TID 30 Days Qty: 180 0RF Rx Instructions: Take 3 times per day to lessen pain. oxycodone 5 mg tablet 5 - 10 mg PO Q6 PRN (Reason: pain) Qty: 40 0RF Rx Instructions: Take as needed for pain ondansetron 4 mg tablet,disintegrating 4 mg PO Q8 PRN (Reason: nausea) Qty: 20 1RF Rx Instructions: Take as needed for nausea sennosides [Senokot] 8.6 mg tablet 8.6 mg PO BID 14 Days Qty: 28 0RF Rx Instructions: Take two times a day to prevent/treat constipation acetaminophen [Tylenol Extra Strength] 500 mg tablet 1,000 mg PO TID 30 Days Qty: 180 0RF Rx Instructions: Take 3 times per day to lessen pain. aspirin [Corbin Low Dose Aspirin] 81 mg tablet,delayed release (DR/EC) 81 mg PO BID 45 Days Qty: 90 0RF Rx Instructions: Take to prevent blood clots. cefadroxil 500 mg capsule 500 mg PO BID 7 Days Qty: 14 0RF Rx Instructions: Take 1 cap twice a day to prevent infection amoxicillin 500 mg tablet 2,000 mg PO ONCE Qty: 4 3RF Rx Instructions: 4 tabs 1 hour prior to procedure cyanocobalamin (vitamin B-12) 1,000 mcg Tablet 1,000 mcg PO QAM Women's 50 Plus Advanced 400-20 mcg Tablet 1 tab PO QAM PreserVision AREDS-2 250-90-40-1 mg Capsule 1 tab PO QAM Discontinued naproxen 500 mg Tablet 500 mg PO BID PRN (Reason: Pain) Krames/Other Patient Handouts: DVT Post Op Prevention Admission Data Admit Date/Time: 10/23/24 12:34 Attending Provider: Enrique Wells Admit Provider: Enrique Wells Primary Care Provider: Christal Mc Other Providers: [facility],Home Health Other Interventions: Discharge Summary Assessment (RN) Last Done: 10/24/24 07:35
== END 2024-10-24 10:06 | disposition home health service (06) ==
LOC: ASU 08:14 → 3E 08:14